=== PATIENT | female | born 2005 | race African-American/Black ===

== ENCOUNTER 2024-01-10 11:40 | Emergency (ER) | payer MEDICAID ==
[~2024-01-10] VITALS: Ht 162.6 cm; Wt 63.0 kg
[2024-01-10 11:42] VITALS: BP 136/92; PULSE 87; RESP 16; TEMP 98; O2SAT 99
[2024-01-10] MEDS ORDERED: OFLO5DRO4 RIGHT EAR (13:01)
== END 2024-01-10 13:06 | disposition home or self-care (01) ==
LOC: ER 11:40
DX: H92.01 Otalgia, right ear (principal)
CPT/HCPCS: 99281

== ENCOUNTER 2025-06-14 07:49 | Emergency (ER) | payer MEDICAID, OTHER ==
[~2025-06-14] VITALS: Ht 167.6 cm; Wt 70.0 kg
[~2025-06-14 07:49] MED LIST: OFLO5DRO4 RIGHT EAR
[2025-06-14 07:59] VITALS: O2SAT 100
[2025-06-14 08:02] VITALS: BP 117/82; PULSE 95; RESP 18; TEMP 37.2; O2SAT 100
== END 2025-06-14 10:43 | disposition left against medical advice (07) ==
LOC: ER 07:49
DX: J06.9 Acute upper respiratory infection, unspecified (principal); H61.21 Impacted cerumen, right ear
CPT/HCPCS: 99282